=== PATIENT | female | born 1985 | race Caucasian/White ===

== ENCOUNTER 2020-10-07 11:53 | Emergency (ER) | payer OTHER ==
[~2020-10-07] VITALS: Ht 157.5 cm; Wt 95.6 kg
--- NOTE | 2020-10-07 12:54 | NUR ---
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
--- NOTE | 2020-10-07 13:11 | NUR ---
REPORT FROM KEVIN DINH.
--- NOTE | 2020-10-07 13:18 | NUR ---
PT HERE WITH C/O RLQ ABD PAIN THAT STARTED THIS MORNING, REPORTS SHE STARTED MENSTRUAL CYCLE TODAY AFTER ABD PAIN STARTED.
[2020-10-07 13:45] LABS: BASOPHILS % (AUTO) 1 % (0-1); EOSINOPHILS % (AUTO) 2 % (1-7); LYMPHOCYTES % (AUTO) 13 % (22-44); MEAN CORPUSCULAR HEMOGLOBIN 23.3 pg (27.0-34.8); MEAN CORPUSCULAR HGB CONC 32.2 g/dL (32.4-35.8); MEAN PLATELET VOLUME 7.4 fL (7.4-10.4); MONOCYTES % (AUTO) 4 % (2-9); NEUTROPHILS % (AUTO) 81 % (42-75); PLATELET COUNT 333 x10^3/uL (130-400); RED BLOOD COUNT 4.71 x10^6/uL (3.82-5.3); RED CELL DISTRIBUTION WIDTH 15.9 % (9.6-15.2)
[2020-10-07 13:47] LABS: MD NO
[2020-10-07 13:51] LABS: ALBUMIN 3.8 g/dL (3.4-5.0); ANION GAP 7 mmol/L (5-15); CALCIUM 8.6 mg/dL (8.5-10.1); CHLORIDE 107 mmol/L (98-107)
[2020-10-07 13:58] LABS: ALANINE AMINOTRANSFERASE 19 U/L (12-78); ALKALINE PHOSPHATASE 84 U/L (45-117); BILIRUBIN,TOTAL 0.5 mg/dL (0.2-1.0); CREATININE 0.64 mg/dL (0.55-1.02); TOTAL PROTEIN 7.6 g/dL (6.4-8.2)
--- NOTE | 2020-10-07 14:20 | NUR ---
PT UP TO RESTROOM FOR URINE SAMPLE.
[2020-10-07 14:48] LABS: MICROSCOPIC NOT IND
[2020-10-07 15:24] VITALS: BP 99/64
--- NOTE | 2020-10-07 15:24 | NUR ---
PT REPORTS IMPROVEMENT ON PAIN. VSS.
== END 2020-10-07 15:39 | disposition home or self-care (01) ==
LOC: ED 15:33
DX: R10.31 Right lower quadrant pain (principal)
CPT/HCPCS: 36415; 80053; 81003; 84703; 85025; 99283